=== PATIENT | male | born 2000 ===

== ENCOUNTER 2018-02-01 14:21 | Emergency (ER) | payer OTHER ==
[2018-02-01] MEDS ORDERED: Sodium Chloride 0.9% 1,000 ML IV STA ×2 (15:01→16:22)
--- NOTE | 2018-02-01 15:08 | ED PDOC ---
Arrival/HPI - General Historian: Patient - History of Present Illness Time/Duration: < week Symptom Course: Improving Quality: Aching, Cramping Activities at Onset: Rest - General Chief Complaint: Abdominal Pain Time Seen by Provider: 02/01/18 14:52 - History of Present Illness Narrative History of Present Illness (Text): 02/01/18 15:02 17M no pmhx presents to [facility] ED w/ nausea, non-bloody, non-bilious vomiting, diarrhea, abdominal pain, generalized body aches for 3 days. Able to tolerate only clear liquid PO intake. No vomiting within the last 12 hours. Denies recent sick contacts or foreign travel. PMH: denies PSH: none ALL: NKDA SocialHx: works at [employer] Past Medical History - Provider Review Nursing Documentation Reviewed: Yes - Travel History Have you recently traveled outside [place] w/in the past 3 mons?: No - Psychiatric Hx Substance Use: No Family/Social History - Physician Review Nursing Documentation Reviewed: Yes Family/Social History: Other (non-contributory) Smoking Status: Never Smoked Hx Alcohol Use: No Hx Substance Use: No Allergies/Home Meds Allergies/Adverse Reactions: Allergies No Known Allergies Allergy (Verified 02/01/18 14:33) Review of Systems - Physician Review All systems were reviewed & negative as marked: Yes - Review of Systems Constitutional: Fatigue, Fevers, Night Sweats. absent: Weight Change Eyes: absent: Vision Changes, Photophobia ENT: Sore Throat, Rhinorrhea. absent: Hearing Changes, Tinnitus, TMJ Pain, Epistaxis Respiratory: absent: SOB, Cough, Sputum, Wheezing Cardiovascular: absent: Chest Pain, Palpitations, Edema Gastrointestinal: Abdominal Pain, Stool Changes, Diarrhea, Nausea, Vomiting, Appetite Changes. absent: Constipation Genitourinary Male: absent: Dysuria Musculoskeletal: Myalgias. absent: Arthralgias Skin: absent: Rash, Pruritis, Skin Lesions, Laceration Neurological: absent: Headache, Dizziness Endocrine: absent: Diaphoresis, Polyuria Hemo/Lymphatic: absent: Adenopathy Physical Exam Temperature: Afebrile Blood Pressure: Normal Pulse: Regular Respiratory Rate: Normal Appearance: Positive for: Well-Appearing, Non-Toxic, Comfortable Pain Distress: None Mental Status: Positive for: Alert and Oriented X 3 - Systems Exam Head: Present: Atraumatic, Normocephalic Pupils: Present: PERRL Extroacular Muscles: Present: EOMI Conjunctiva: Present: Normal Ears: Present: NORMAL TM, Normal Canal. No: Erythema, TM Bulging Mouth: Present: Moist Mucous Membranes. No: Dry, Drooling, Trismus, Normal Tounge Pharnyx: No: ERYTHEMA, EXUDATE, TONSILS ENLARGED, Uvular Deviation, Soft Palate/ Uvular Edema Nose (External): Present: Atraumatic. No: Abrasion Nose (Internal): Present: Normal Inspection. No: No Active Bleeding Neck: Present: Normal Range of Motion Respiratory/Chest: Present: Clear to Auscultation, Good Air Exchange. No: Respiratory Distress, Accessory Muscle Use Cardiovascular: Present: Regular Rate and Rhythm, Murmurs, Normal S1, S2 Abdomen: Present: Tenderness (LLQ, RLQ, RUQ), Normal Bowel Sounds. No: Distention, Peritoneal Signs, Rebound, McBurney's Point Tender, Rovsing's Sign Present, Hernias, Scars Upper Extremity: Present: Normal Inspection, NORMAL PULSES. No: Cyanosis, Edema Lower Extremity: Present: Normal Inspection, NORMAL PULSES. No: Edema, CALF TENDERNESS Neurological: Present: GCS=15, Speech Normal Skin: Present: Warm, Dry, Normal Color Lymphatic: No: Cervical Adenopathy Psychiatric: Present: Alert, Oriented x 3 Vital Signs Temp Pulse Resp BP Pulse Ox 02/01/18 16:39 98.3 F 70 19 114/58 L 95 02/01/18 14:22 98.6 F 93 H 20 121/79 96 Medical Decision Making Re-evaluation Time: 16:41 (pt feeling better. Nausea has subsided. Plan for D/C) - Lab Interpretations I have reviewed the lab results: Yes Interpretation: All labs normal ED Course and Treatment: 02/01/18 15:14 Zofran/Pepcid/IVF CBC/CMP/Lipase Conservative management Re-Eval and Reassess 02/01/18 16:30 1L fluid complete. Feeling better. Discussed No elevated WBC. Potassium 3.5, will give 1 dose of K+ prior to D/C (Alec Coello) 02/01/18 16:50 17 yo male presents with abdominal pain n/v/d. I agree with resident note. Abdomen: Soft; Tender to left upper and mid to right lower abdomen. No guarding. No rebound. No peritoneal signs. Negative McBurney's Point. Negative Boyce sign. Negative Rosving's sign. Back: No CVAT, No tenderness Patient was hydrated with 1 L fluid, and given Pepcid/Zofran. He is feel much better. Abdominal exam improved. No lower abdominal tenderness. Mild LUQ tenderness. He is tolerating PO fluids with no vomiting. Labs reviewed show normal WBC. Potassium is mildly low so we replaced it with Potassium PO. We advised the patient to make sure he continues to stay well hydrated. We advised him to f/u with his PMD and return to the ED if symptoms worsen or any other concern. (Dani Tyler) - Lab Interpretations Narrative Lab Interpretation (Text): 02/01/18 16:42 WBC and Chem within normal limits. Potassium 3.5, will give 1 dose of K-Dur (Alec Coello) Lab Results: 02/01/18 15:00 02/01/18 15:00 Lab Results 02/01/18 15:00: Sodium 142, Potassium 3.5 L, Chloride 104, Carbon Dioxide 26, Anion Gap 16, BUN 16, Creatinine 1.1, Est GFR ( Amer) > 60, Est GFR (Non- Af Amer) > 60, Random Glucose 111 H, Calcium 9.6, Lipase 75 02/01/18 15:00: WBC 6.5, RBC 5.22, Hgb 16.5, Hct 44.2, MCV 84.7, MCH 31.6, MCHC 37.3 H, RDW 12.5, Plt Count 154, MPV 10.6, Gran % 82.1 H, Lymph % (Auto) 11.0 L , [place] % (Auto) 6.5 H, Eos % (Auto) 0.2 L, Baso % (Auto) 0.2, Gran # 5.30, Lymph # (Auto) 0.7 L, [place] # (Auto) 0.4, Eos # (Auto) 0.0, Baso # (Auto) 0.01 - Medication Orders Current Medication Orders: Sodium Chloride (Sodium Chloride 0.9%) 1,000 mls @ 999 mls/hr IV .Q1H1M STA Stop: 02/01/18 17:22 Last Admin: 02/01/18 16:30 Dose: 999 mls/hr eMAR Start Stop Document 02/01/18 16:30 LA (Rec: 02/01/18 16:30 LA [id number]) Intravenous Solution Start Date 02/01/18 Start Time 16:30 End Date 02/01/18 End time 17:31 Total Infusion Time 61 Discontinued Medications Famotidine (Pepcid) 20 mg IVP STAT STA Stop: 02/01/18 15:02 Last Admin: 02/01/18 15:08 Dose: 20 mg IVP Administration Document 02/01/18 15:08 LA (Rec: 02/01/18 15:08 LA [id number]) Charges for Administration # of IVP Administrations 1 Sodium Chloride (Sodium Chloride 0.9%) 1,000 mls @ 999 mls/hr IV .Q1H1M STA Stop: 02/01/18 16:01 Last Admin: 02/01/18 15:08 Dose: 999 mls/hr eMAR Start Stop Document 02/01/18 15:08 LA (Rec: 02/01/18 15:09 LA [id number]) Intravenous Solution Start Date 02/01/18 Start Time 15:08 End Date 02/01/18 End time 16:09 Total Infusion Time 61 Ibuprofen (Motrin Tab) 800 mg PO STAT STA Stop: 02/01/18 16:20 Last Admin: 02/01/18 16:29 Dose: 800 mg Ondansetron HCl (Zofran Inj) 4 mg IVP STAT STA Stop: 02/01/18 15:02 Last Admin: 02/01/18 15:08 Dose: 4 mg IVP Administration Document 02/01/18 15:08 LA (Rec: 02/01/18 15:08 LA [id number]) Charges for Administration # of IVP Administrations 1 Potassium Chloride (K-Dur 20 Meq Er Tab) 40 meq PO STAT STA Stop: 02/01/18 16:40 - 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 / has examined the patient and agrees with the treatment plan. Disposition/Present on Arrival - Present on Arrival Any Indicators Present on Arrival: No History of DVT/PE: No History of Uncontrolled Diabetes: No Urinary Catheter: No History of Decub. Ulcer: No History Surgical Site Infection Following: None - Disposition Have Diagnosis and Disposition been Completed?: Yes Disposition Time: 16:41 Patient Plan: Discharge - Disposition Diagnosis: Gastroenteritis Disposition: HOME/ ROUTINE Condition: GOOD Discharge Instructions (ExitCare): Gastroenteritis (ED) Additional Instructions: Thank you for letting us take care of you today. You were treated for Enteritis and dehydration. The emergency medical care you received today was directed at your acute symptoms. If you were prescribed any medication, please fill it and take as directed. It may take several days for your symptoms to resolve. Return to the Emergency Department if your symptoms worsen, do not improve, or if you have any other problems. Please contact your doctor or call one of the physicians/clinics you have been referred to that are listed on the Patient Visit Information form that is included in your discharge packet. Bring any paperwork you were given at discharge with you along with any medications you are taking to your follow up visit. Our treatment cannot replace ongoing medical care by a primary care provider (PCP) outside of the emergency department. Thank you for allowing the [facility] team to be part of your care today. Prescriptions: Ondansetron ODT [Zofran ODT] 4 mg PO Q6 PRN #20 odt PRN Reason: Nausea/Vomiting Referrals: [facility] Tommy Alfaro, [Primary Care Provider] - Follow up with primary Forms: [employer] (Estonian), WORK NOTE
[2018-02-01 15:31] LABS: BASO # 0.01 K/mm3 (0.0-2.0); BASO % 0.2 % (0.0-3.0); EOS % 0.2 % (1.5-5.0); GRAN # 5.3 (1.4-6.5); GRAN % 82.1 % (50.0-68.0); HEMOGLOBIN 16.5 g/dL (14.0-18.0); LYMPH # 0.7 (1.2-3.4); MEAN CELL VOLUME 84.7 fl (80.0-105.0); MEAN CORPUSCULAR HEMOGLOBIN 31.6 pg (25.0-35.0); MEAN CORPUSCULAR HGB CONC 37.3 g/dl (31.0-37.0); MEAN PLATELET VOLUME 10.6 fl (7.0-11.0); MONO # 0.4 (0.1-0.6); MONO % 6.5 % (1.0-6.0); RBC 5.22 10^6/uL (3.5-6.1); RED CELL DISTRIBUTION WIDTH 12.5 % (11.5-14.5); WHITE BLOOD COUNT 6.5 10^3/ul (4.5-11.0)
[2018-02-01 16:16] LABS: LIPASE 75 U/L (23-300)
[2018-02-01 16:39] LABS: BLOOD UREA NITROGEN 16 mg/dL (7-21); CALCIUM 9.6 mg/dL (8.4-10.5); GFR AFRICAN-AMERICAN > 60; GFR NON-AFRICAN AMERICAN > 60
[2018-02-01] MEDS ORDERED: Potassium Chloride 20 mEq ER Tab PO STA (16:39)
[2018-02-01 16:41] VITALS: RESP 19
[2018-02-01 17:50] VITALS: BP 115/60; PULSE 67; TEMP 98.8; O2SAT 99
== END 2018-02-01 18:11 | disposition home or self-care (01) ==
LOC: ED 14:21
DX: K52.9 Noninfective gastroenteritis and colitis, unspecified (principal)
CPT/HCPCS: 80048; 83690; 85025; 96361; 96374; 96375; 99284; J2405; J7040

== ENCOUNTER 2019-03-25 20:47 | Emergency (ER) | payer OTHER ==
[2019-03-25 21:02] VITALS: RESP 18
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
[2019-03-26 01:17] VITALS: BP 122/78; PULSE 68; TEMP 97.2; O2SAT 98
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
== END 2019-03-26 01:15 | disposition home or self-care (01) ==
LOC: ED 20:47
DX: M54.5 Low back pain (principal); V49.49XA Driver injured in collision with other motor vehicles in traffic accident, initial encounter; Y92.410 Unspecified street and highway as the place of occurrence of the external cause
CPT/HCPCS: 72110; 96372; 99284; J1885